=== PATIENT | female | born 1950 | race Caucasian/White ===

== ENCOUNTER 2018-09-01 14:53 | Emergency (ER) | payer MEDICARE, BC ==
[2018-09-01 15:02] VITALS: BP 176/80
--- NOTE | 2018-09-01 15:24 | ER Document Report ---
ED General - General Chief Complaint: Fall Stated Complaint: BACK PAIN Time Seen by Provider: 09/01/18 14:59 Notes: Patient is a 68-year-old female that presents to the emergency department for chief complaint of head injury and fall, back pain. Patient states that she had mechanical fall today, she states that her walker got away from her and she lost her balance, she fell and hit her head, her left elbow, and her right side. She denies loss of consciousness, or any neck pain. Denies any new numbness, weakness or tingling. She states that she had a brain surgery for partial tumor removal for benign tumor on 08/06/2018, and was concerned about this given she had recent surgery. She is not currently on any blood thinners, not taking aspirin. She denies having any headache at this time, denies blurred vision. He denies any nausea or vomiting. 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 In regards to her back pain, she currently rates that as a 6 out of 10, describes as an aching sensation on the right side of her back, worse with turning or moving. She denies having any midline pain. Denies any loss of bowel or bladder function. Past Medical History: Benign brain tumor, diabetes, hypertension, hyperlipidemia Past Surgical History: Brain surgery x2 for benign tumor Social History: Denies tobacco, alcohol or drug use. Family History: Reviewed and noncontributory for presenting illness Allergies: Reviewed, see documented allergy list. REVIEW OF SYSTEMS: Other than noted above, the 12 point review of systems was reviewed with the patient and were negative, all pertinent findings are included in the HPI. PHYSICAL EXAMINATION: Vital signs reviewed, nursing noted reviewed. GENERAL: Well-appearing, well-nourished and in no acute distress. HEAD: Mild ecchymosis noted over the left forehead just superior to the orbital rim, no step-off or deformity palpated, normocephalic. EYES: Eyes appear normal, extraocular movements intact, sclera anicteric, conjunctiva are normal. PERRLA ENT: nares patent, oropharynx clear without exudates. Moist mucous membranes. NECK: Normal range of motion, supple without lymphadenopathy, no midline tenderness LUNGS: Breath sounds clear to auscultation bilaterally and equal. No wheezes rales or rhonchi. HEART: Regular rate and rhythm without murmurs ABDOMEN: Soft, nontender, normoactive bowel sounds. No rebound, guarding, or rigidity. No masses appreciated. EXTREMITIES: Nontender, left drop foot brace in place, sensation intact distally, patient is able to extend the hallucis longus tendon with +5/5 strength in the left and the right, strength on the left is at baseline, strength on the right, is +5/5 distally. Equal sensation bilaterally in the upper extremities, distal strength intact.' Back: No step-offs or deformities, no tenderness to the midline of the thoracic or lumbar spine, there is paraspinal tenderness on the right of the lumbar spine, around L3 through L4, and appears to be in spasm as well, tends to palpate compared to the left. NEUROLOGICAL: No focal neurological deficits. Moves all extremities spontaneously Motor and sensory grossly intact on exam. PSYCH: Normal mood, normal affect. SKIN: Warm, Dry, normal turgor, no rashes or lesions noted on exposed skin TRAVEL OUTSIDE OF THE [place] IN LAST 30 DAYS: No - Related Data Allergies/Adverse Reactions: ciprofloxacin HCl [From Cipro] Allergy (Mild, Verified 09/07/14 19:43) increased leg seizure activity erythromycin lactobionate [From Erythrocin] Allergy (Mild, Verified 09/07/14 19:43) upset stomach,diarrhea, stomach pain Sulfa (Sulfonamide Antibiotics) Allergy (Mild, Verified 09/07/14 19:43) swelling in arms as a child ciprofloxacin [From Cipro] Allergy (Verified 09/07/14 19:43) Past Medical History - Social History Smoking Status: Unknown if Ever Smoked Family History: Reviewed & Not Pertinent Patient has suicidal ideation: No Patient has homicidal ideation: No - Past Medical History Cardiac Medical History: Reports: Hx Heart Attack - 2007 due to medication error while in hospital, Hx Hypertension - medicated Pulmonary Medical History: Denies: Hx Asthma Neurological Medical History: Reports: 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 Denies: Hx Cerebrovascular Accident Endocrine Medical History: Reports: Hx Diabetes Mellitus Type 2 Renal/ Medical History: Denies: Hx Peritoneal Dialysis Malignancy Medical History: Reports: Hx Brain Cancer GI Medical History: Denies: Hx Hepatitis, Hx Hiatal Hernia, Hx Ulcer Psychiatric Medical History: Denies: Hx Depression Infectious Medical History: Denies: Hx Hepatitis Past Surgical History: Denies: Hx Hysterectomy, Hx Mastectomy, Hx Open Heart Surgery, Hx Pacemaker - Immunizations Hx Diphtheria, Pertussis, Tetanus Vaccination: No - unknown Physical Exam - Vital signs Vitals: Temp Pulse Resp BP Pulse Ox 98.5 F 96 16 176/80 H 95 09/01/18 15:00 09/01/18 15:00 09/01/18 15:00 09/01/18 15:00 09/01/18 15:00 Course - Re-evaluation Re-evalutation: Patient seen and examined vital signs reviewed. Laboratory data and imaging were ordered as appropriate for the patient's presenting symptoms and complaint, with consideration of any critical or life threatening conditions that may be associated with their obtained history and exam as noted above. Patient was treated with Tylenol for her pain, she did not want anything stronger for pain at this time. Results were reviewed when available and demonstrated negative CT imaging of the head for acute findings, patient does have postsurgical changes, and her chronic changes in the right brain where she does have an underlying benign tumor, from her recent craniotomy and cervical spine was negative for acute injury, did not think the patient needed imaging of her lumbar spine as she had no midline tenderness, and was all paraspinal, she did have paraspinal fullness, and tension on the right, which I believe is leading to her pain, secondary to muscle spasm. The patient was re-evaluated and was stable and improved, no headache, pain was improving in her low back, no other complaints at this time. Evaluation was most consistent with fall, closed head injury, and low back pain as a result of this injury, advised rest, ice therapy or warm compresses, and given a low-dose prescription for muscle relaxer to take in the evening, advised this in caution, and otherwise advised Tylenol for the pain, family and the patient were agreeable to this. She does have a walker as well as a wheelchair at home if needed for ambulation to avoid further falls. Results were discussed with the patient at this point, after careful consideration I feel that that patient can be discharged from the emergency department, the patient was educated treatments and reasons to return to the emergency department based on their presumed diagnosis as noted above, they were advised to followup with a primary care physician in 2-3 days. Patient was agreeable to plan of care. *Note is created using voice recognition software and may contain spelling, syntax or grammatical errors. Cervical Spine CT 09/01/18 15:37 IMPRESSION: No fracture or static subluxation of the cervical spine. Head CT 09/01/18 15:37 IMPRESSION: 1. No acute intracranial pathology. 2. There is a rim hyperdense lesion of the right frontoparietal hemispheric white matter with extensive surrounding white matter hypodensity suggestive of edema or post treatment change and overlying findings of prior craniotomy. Correlate with history of known malignancy and prior treatment if applicable. Comparison to prior imaging would be helpful to ensure stability; this may otherwise be further evaluated by contrast-enhanced MRI. EVIDENCE OF ACUTE STROKE: NO. - Vital Signs Vital signs: Temp Pulse Resp BP Pulse Ox 98.5 F 96 16 176/80 H 95 09/01/18 15:00 09/01/18 15:00 09/01/18 15:00 09/01/18 15:00 09/01/18 15:00 Discharge - Discharge Clinical Impression: Closed head injury Qualifiers: Encounter type: initial encounter Qualified Code(s): S09.90XA - Unspecified injury of head, initial encounter Fall Qualifiers: Encounter type: initial encounter Qualified Code(s): W19.XXXA - Unspecified fall, initial encounter Back pain Qualifiers: Back pain location: low back pain Chronicity: acute Back pain laterality: right Sciatica presence: without sciatica Qualified Code(s): M54.5 - Low back pain Condition: Stable Disposition: HOME, SELF-CARE Instructions: Low Back Pain ([facility]) Additional Instructions: Please follow-up with the primary care physician, please use a warm or cool compress for 20 minutes on and 20 minutes off to help relieve some of your low back pain. You can also take the muscle relaxer sparingly, but be cautious because this me dication can cause drowsiness, and I recommend taking it before bed. Otherwise you can take Tylenol up to 1000 mg every 8 hours to help control the pain associated with your low back injury. Prescriptions: Methocarbamol [Robaxin 500 mg Tablet] 500 mg PO TID PRN #15 tablet PRN Reason: BACK SPASM Referrals: KUSH FLOREZ MD [Primary Care Provider] - Follow up in 3-5 days
[2018-09-01] MEDS ORDERED: ACETAMINOPHEN 325 MG TABLET PO ONE (15:36)
--- NOTE | 2018-09-01 16:05 | RADIOLOGY REPORT (SQ) ---
EXAM DESCRIPTION: CT HEAD WITHOUT COMPLETED DATE/TIME: 09/01/2018 3:54 pm REASON FOR STUDY: fall, head injury COMPARISON: None. TECHNIQUE: Axial images acquired through the brain without intravenous contrast. Images reviewed wi th bone, brain and subdural windows. Additional sagittal and coronal reconstructions were generated. Images stored on PACS. All CT scanners at this facility use dose modulation, iterative reconstruction, and/or weight based d osing when appropriate to reduce radiation dose to as low as reasonably achievable (ALARA). [facility]: Dose Right [facility]: CareDose [facility]: Dose Right [facility]: Teradose 4D [facility]: [employer] RADIATION DOSE: CT Rad equipment meets quality standard of care and radiation dose reduction techniq ues were employed. CTDIvol: 48.7 mGy. DLP: 979 mGy-cm. mGy. LIMITATIONS: None. FINDINGS: VENTRICLES: Normal size and contour. CEREBRUM: There is a rim hyperdense lesion of the right frontoparietal hemispheric white matter (seri es 2, image 25) with extensive surrounding white matter hypodensity and overlying findings of prior c raniotomy. CEREBELLUM: No masses. No hemorrhage. No alteration of density. No evidence for acute infarction. EXTRAAXIAL SPACES: No fluid collections. No masses. ORBITS AND GLOBE: No intra- or extraconal masses. Normal contour of globe without masses. CALVARIUM: No fracture. Status post prior right frontoparietal craniotomy. PARANASAL SINUSES: No fluid or mucosal thickening. SOFT TISSUES: No mass or hematoma. OTHER: No other significant finding. IMPRESSION: 1. No acute intracranial pathology. 2. There is a rim hyperdense lesion of the right frontoparietal hemispheric white matter with extensi ve surrounding white matter hypodensity suggestive of edema or post treatment change and overlying fi ndings of prior craniotomy. Correlate with history of known malignancy and prior treatment if applic able. Comparison to prior imaging would be helpful to ensure stability; this may otherwise be furthe r evaluated by contrast-enhanced MRI. EVIDENCE OF ACUTE STROKE: NO. COMMENT: Quality ID # [id number]: Final reports with documentation of one or more dose reduction techniques (e.g., Automated exposure control, adjustment of the mA and/or kV according to patient size, use of iterative reconstruction technique) TECHNICAL DOCUMENTATION: JOB ID: [id number] [employer]- All Rights Reserved Reading location - IP/workstation name: [email or web address]
--- NOTE | 2018-09-01 16:06 | RADIOLOGY REPORT (SQ) ---
EXAM DESCRIPTION: CT CERVICAL SPINE WITHOUT COMPLETED DATE/TIME: 09/01/2018 3:54 pm REASON FOR STUDY: fall, head injury COMPARISON: None. TECHNIQUE: Axial images acquired through the cervical spine without intravenous contrast. Images re viewed with lung, soft tissue and bone windows. Reconstructed coronal and sagittal MPR images review ed. Images stored on PACS. All CT scanners at this facility use dose modulation, iterative reconstruction, and/or weight based d osing when appropriate to reduce radiation dose to as low as reasonably achievable (ALARA). [facility]: Dose Right [facility]: CareDose [facility]: Dose Right [facility]: Teradose 4D [facility]: [employer] RADIATION DOSE: CT Rad equipment meets quality standard of care and radiation dose reduction techniq ues were employed. CTDIvol: 22.1 mGy. DLP: 500 mGy-cm. mGy. LIMITATIONS: None. FINDINGS: ALIGNMENT: Degenerative straightening of the normal cervical lordosis. MINERALIZATION: Osteopenia. VERTEBRAL BODIES: No fractures or dislocation. DISCS: Moderate multilevel disc degenerative disease. FACETS, LATERAL MASSES, POSTERIOR ELEMENTS: No fractures. No dislocation. No acute findings. HARDWARE: None in the spine. VISUALIZED RIBS: No fractures. LUNG APICES AND SOFT TISSUES: No significant or acute findings. OTHER: No other significant finding. IMPRESSION: No fracture or static subluxation of the cervical spine. TECHNICAL DOCUMENTATION: JOB ID: [id number] Quality ID # [id number]: Final reports with documentation of one or more dose reduction techniques (e.g., Au tomated exposure control, adjustment of the mA and/or kV according to patient size, use of iterative reconstruction technique) 2010 [employer]- All Rights Reserved Reading location - IP/workstation name: [email or web address]
== END 2018-09-01 16:37 | disposition home or self-care (01) ==
LOC: ER 14:53
DX: S09.90XA Unspecified injury of head, initial encounter (principal); M54.5 Low back pain; M54.9 Dorsalgia, unspecified; M21.372 Foot drop, left foot; W19.XXXA Unspecified fall, initial encounter; E11.9 Type 2 diabetes mellitus without complications; I10 Essential (primary) hypertension
CPT/HCPCS: 99284; 70450; 72125; A9270